=== PATIENT | male | born 1965 | race Caucasian/White ===

== ENCOUNTER 2019-04-16 06:41 | Emergency (ER) | payer OTHER ==
[2019-04-16 07:16] VITALS: BP 146/79; PULSE 81; TEMP 97.7; BMI 29.2
[2019-04-16] MEDS ORDERED: MECLIZINE HCL 25 MG TABLET (FP) PO ONE (07:35)
--- NOTE | 2019-04-16 07:45 | PDOC ---
History of Present Illness - General Chief Complaint: Headache Stated Complaint: DIZZINESS Time Seen by Provider: 04/16/19 07:28 History Source: Patient Exam Limitations: No Limitations - History of Present Illness Initial Comments: 04/16/19 07:26 53-year-old male with history of hypertension and diabetes presents to ED with complaints of dizziness worsened with standing and moving since last night. Patient denies any visual changes, headache, neck pain recent dental work recent travel recent head injury. Patient also denies chest pain or shortness of breath. Patient states has not checked his glucose but takes his medication a daily basis. Patient has no other complaints at this time. Timing/Duration: reports: constant Severity: Yes: mild Associated Symptoms: reports: other Past History - Travel Traveled outside of the country in the last 30 days: No Close contact w/someone who was outside of country & ill: No - Past Medical History Allergies/Adverse Reactions: Allergies Allergy/AdvReac Type Severity Reaction Status Date / Time No Known Allergies Allergy Verified 08/15/15 17:54 Home Medications: Ambulatory Orders Amlodipine Besylate [Norvasc -] 10 mg PO DAILY 05/11/14 Aspirin [ASA -] 81 mg PO DAILY 05/11/14 Lisinopril [Prinivil -] 40 mg PO DAILY 05/11/14 Sitagliptin Phosphate [Januvia] 100 mg PO DAILY 05/11/14 metFORMIN HCL [Glucophage] 1,000 mg PO BID 05/11/14 Atorvastatin Ca [Lipitor] 80 mg PO HS 04/16/19 Glipizide [Glipizide ER] 10 mg PO DAILY 04/16/19 Meclizine HCl [Antivert -] 25 mg PO TID PRN #21 tablet 04/16/19 COPD: No Diabetes: Yes HTN: Yes Hypercholesterolemia: Yes - Immunization History Immunization Up to Date: No - Suicide/Smoking/Psychosocial Hx Smoking History: Never smoked Hx Alcohol Use: No Drug/Substance Use Hx: No Substance Use Type: Alcohol Patient Lives Alone: No Lives with/in: spouse/SO Review of Systems - Review of Systems Able to Perform ROS?: Yes Constitutional: No: Symptoms Reported HEENTM: No: Symptoms Reported Respiratory: No: Symptoms reported Cardiac (ROS): No: Symptoms Reported ABD/GI: No: Symptoms Reported : No: Symptoms Reported Musculoskeletal: No: Symptoms Reported Integumentary: No: Symptoms Reported Neurological: Yes: Dizziness. No: Headache, Numbness, Weakness Endocrine: No: Symptoms Reported Hematologic/Lymphatic: No: Symptoms Reported *Physical Exam - Vital Signs Last Vital Signs Temp Pulse Resp BP Pulse Ox 97.7 F 81 18 146/79 98 04/16/19 07:09 04/16/19 07:09 04/16/19 07:09 04/16/19 07:09 04/16/19 07:09 - Physical Exam General Appearance: Yes: Nourished, Appropriately Dressed. No: Apparent Distress HEENT: negative: Pale Conjunctivae Neck: positive: Supple Respiratory/Chest: positive: Lungs Clear, Normal Breath Sounds. negative: Respiratory Distress, Accessory Muscle Use Cardiovascular: positive: Regular Rhythm, Regular Rate. negative: Tachycardia Gastrointestinal/Abdominal: positive: Soft. negative: Tenderness Integumentary: positive: Normal Color, Warm, Moist Neurologic: positive: Normal Mood/Affect, Motor Strength 5/5, Other (negative Hallpike's) Heart Score/ECG Review - ECG Intrepretation Rhythm: Regular Rhythm (rate 77, nsr, intervals are reg) - ECG Impressions Normal ECG: Yes Non-specific ST Elevation: No ED Treatment Course - LABORATORY CBC & Chemistry Diagram: 04/16/19 07:40 04/16/19 07:40 - RADIOLOGY Radiology Studies Ordered: Category Date Time Status HEAD CT WITHOUT CONTRAST [CT] Stat CT Scan 04/16/19 07:30 Ordered Medical Decision Making - Medical Decision Making 04/16/19 08:06 Chief complaint: Patient with history of diabetes and hypertension complaints of dizziness worsened with standing since last night. Patient states feels as if the room is spinning denies headache or visual changes Exam. Patient-vital signs stable. Patient with negative Hallpike's. No neuro focal deficits Plan. Labs, EKG, meclizine head CT and urine. 04/16/19 08:55 CT negative for focal intracranial lesion or hemorrhage. Mild deviation of the nasal septum towards the left noted. Patient states feeling moderate relief. will give an addit 12.5 mg and dc home with neuro f/u *DC/Admit/Observation/Transfer Diagnosis at time of Disposition: Vertigo - Discharge Dispostion Disposition: HOME Condition at time of disposition: Improved - Referrals Referrals: Howard Chiu MD [Primary Care Provider] - Keanu Reece MD [Staff Physician] - - Patient Instructions Printed Discharge Instructions: DI for Vertigo Additional Instructions: Please get up from lying position in steps as discussed here in the ER. Take medication as needed for dizziness. Please follow up with referred neurologist. If symptoms do not improve or worsen please go to the nearest ER. Print Language: LEBANESE - Post Discharge Activity
[2019-04-16] MEDS ORDERED: MECLIZINE HCL 25 MG TABLET (FP) ONE (08:05)
[2019-04-16 08:16] LABS: BASO % 0.7 % (0-2.0); EOS % 3.4 % (0-4.5); HEMATOCRIT 40.9 % (35.4-49); HEMOGLOBIN 13.6 GM/dL (11.7-16.9); MCH 28.2 pg (25.7-33.7); MCHC 33.3 g/dl (32.0-35.9); MEAN CELL VOLUME 84.7 fl (80-96); MEAN PLT VOLUME 7.7 fl (7.5-11.1); MONO % 9.1 % (3.8-10.2); NEUT % 61.8 % (42.8-82.8); PLATELET COUNT 199 K/MM3 (134-434); RBC 4.83 M/mm3 (4.00-5.60); RDW 13.8 % (11.9-15.9); WHITE BLOOD COUNT 5.9 K/mm3 (4.0-10.0)
[2019-04-16 08:30] LABS: ALBUMIN 3.9 g/dl (3.4-5.0); CALCIUM 8.6 mg/dL (8.5-10.1); CREATININE 0.9 mg/dL (0.55-1.3); POTASSIUM 4.6 mmol/L (3.5-5.1); TOT PROT 7.1 g/dl (6.4-8.2)
[2019-04-16 08:46] LABS: URINE APPEARANCE CLEAR; URINE BILIRUBIN NEGATIVE (NEGATIVE); URINE COLOR YELLOW; URINE GLUCOSE (UA) TRACE (NEGATIVE); URINE KETONE NEGATIVE (NEGATIVE); URINE LEUK ESTERASE NEGATIVE (NEGATIVE); URINE NITRITE NEGATIVE (NEGATIVE); URINE PROTEIN NEGATIVE (NEGATIVE)
[2019-04-16] MEDS ORDERED: MECLIZINE HCL 12.5 MG TABLET PO ONE (09:10)
[2019-04-16] MEDS ORDERED: MECLIZINE HCL 12.5 MG TABLET ONE (09:29)
--- NOTE | 2019-04-16 13:11 | EKG ---
Test Reason : Blood Pressure : / mmHG Vent. Rate : 077 BPM Atrial Rate : 077 BPM P-R Int : 182 ms QRS Dur : 092 ms QT Int : 378 ms P-R-T Axes : 057 068 026 degrees QTc Int : 427 ms NORMAL SINUS RHYTHM NORMAL ECG NO PREVIOUS ECGS AVAILABLE Confirmed by AMA LEON MD ([id number]) on 04/16/2019 1:11:16 PM Referred By: Confirmed By:AMA LEON MD
== END 2019-04-16 09:36 | disposition home or self-care (01) ==
LOC: JER 06:41
DX: R42 Dizziness and giddiness (principal); I10 Essential (primary) hypertension; E78.00 Pure hypercholesterolemia, unspecified; E11.9 Type 2 diabetes mellitus without complications; Z79.84 Long term (current) use of oral hypoglycemic drugs
CPT/HCPCS: 36415; 70450-TC; 80053; 81003; 85025; 93005; 93010; 99283-25

== ENCOUNTER 2021-01-03 19:04 | Emergency (ER) | payer OTHER ==
[2021-01-03 19:22] VITALS: TEMP 98.1; BMI 29.9
[2021-01-03] MEDS ORDERED: SODIUM CHLORIDE 1,000 ML IV STA ×2 (20:08→21:55)
[2021-01-03 20:55] LABS: BASO % 0.2 % (0-2.0); EOS % 1.7 % (0-4.5); HEMATOCRIT 42.5 % (35.4-49); HEMOGLOBIN 14.5 GM/dL (11.7-16.9); LYMPH % 20.2 % (8-40); MCH 28.1 pg (25.7-33.7); MCHC 34.2 g/dl (32.0-35.9); MEAN CELL VOLUME 82.3 fl (80-96); MEAN PLT VOLUME 8.1 fl (7.5-11.1); NEUT % 69.9 % (42.8-82.8); PLATELET COUNT 419 K/MM3 (134-434); RBC 5.17 M/mm3 (4.00-5.60); RDW 13.7 % (11.9-15.9); WHITE BLOOD COUNT 8.7 K/mm3 (4.0-10.0)
[2021-01-03 21:11] LABS: CHLORIDE 95 mmol/L (98-107); POTASSIUM 4.2 mmol/L (3.5-5.1); SODIUM 131 mmol/L (136-145)
[2021-01-03 21:14] LABS: ANION GAP 8 MMOL/L (8-16); BLOOD UREA NITROGEN 27.8 mg/dL (7-18); CALCIUM 9.3 mg/dL (8.5-10.1); CO2 29 mmol/L (21-32)
[2021-01-03 21:15] LABS: ALBUMIN 3.5 g/dl (3.4-5.0)
[2021-01-03 21:17] LABS: SGOT/AST 37 U/L (15-37); SGPT/ALT 100 U/L (13-61)
[2021-01-03 21:18] LABS: CREATININE 1.4 mg/dL (0.55-1.3)
[2021-01-03 21:19] LABS: BILIRUBIN,TOTAL 0.7 mg/dL (0.2-1); TOT PROT 7.2 g/dl (6.4-8.2)
[2021-01-03 21:20] LABS: ALK PHOS 99 U/L (45-117)
[2021-01-03 21:23] LABS: VENOUS BASE EXCESS -0.3 mmol/L (-2-2); VENOUS O2 SATURATION 68.1 % (70-80); VENOUS PCO2 44.2 mmHg (38-52); VENOUS PH 7.375 (7.310-7.410)
[2021-01-03 21:31] LABS: GLUCOSE,RANDOM 440 mg/dL (74-106)
[2021-01-03] MEDS ORDERED: INSULIN REGULAR HUMAN 100 UNITS/ML *VIAL IVPUSH ONE (21:55)
[2021-01-03 22:01] LABS: URINE COLOR YELLOW
[2021-01-03 22:02] LABS: PH,URINE 6.5 (5.0-8.0); URINE APPEARANCE CLEAR; URINE BILIRUBIN NEGATIVE (NEGATIVE); URINE GLUCOSE (UA) >=1000 (NEGATIVE); URINE KETONE TRACE (NEGATIVE); URINE LEUK ESTERASE NEGATIVE (NEGATIVE); URINE NITRITE NEGATIVE (NEGATIVE); URINE PROTEIN NEGATIVE (NEGATIVE)
[2021-01-04 00:19] VITALS: BP 130/77; PULSE 89
== END 2021-01-04 00:19 | disposition home or self-care (01) ==
LOC: JER 19:04
PROC: 3E013VG Introduction of Insulin into Subcutaneous Tissue, Percutaneous Approach (ICD-10-PCS; principal; 2021-01-03)
PROC: 3E0337Z Introduction of Electrolytic and Water Balance Substance into Peripheral Vein, Percutaneous Approach (ICD-10-PCS; 2021-01-03)
PROC: 3E0337Z Introduction of Electrolytic and Water Balance Substance into Peripheral Vein, Percutaneous Approach (ICD-10-PCS; 2021-01-03)
DX: R73.9 Hyperglycemia, unspecified (principal)
CPT/HCPCS: 36415; 71046-TC-FY; 80053; 81003; 82010; 82550; 82803; 82962; 84484; 85025; 93005; 93010; 99285-25

== ENCOUNTER 2021-04-26 15:18 | Emergency (ER) | payer OTHER ==
[2021-04-26 15:35] VITALS: BP 124/77; PULSE 79; TEMP 98.1; BMI 29.9
== END 2021-04-26 17:05 | disposition home or self-care (01) ==
LOC: JERFT 15:18
DX: M25.512 Pain in left shoulder (principal)
CPT/HCPCS: 73030-TC-LT-FY; 99283-25

== ENCOUNTER 2022-03-06 12:14 | Emergency (ER) | payer OTHER ==
[2022-03-06 12:26] VITALS: BP 167/79; PULSE 87; TEMP 97.7; BMI 29.2
[2022-03-06] MEDS ORDERED: CEFAZOLIN 1 GM in DEXTROSE 5%-WATER - 50 ML IVPB ONE (15:45)
[2022-03-06] MEDS ORDERED: ceFAZolin SODIUM 1 GM VIAL ONE (16:10)
[2022-03-06 16:42] LABS: BASO % 0.8 % (0-2.0); EOS % 4.2 % (0-4.5); HEMATOCRIT 39.7 % (35.4-49); HEMOGLOBIN 13.4 GM/dL (11.7-16.9); LYMPH % 22.1 % (8-40); MCH 28.2 pg (25.7-33.7); MCHC 33.7 g/dl (32.0-35.9); MEAN CELL VOLUME 83.6 fl (80-96); MEAN PLT VOLUME 7.6 fl (7.5-11.1); MONO % 6.8 % (3.8-10.2); NEUT % 66.1 % (42.8-82.8); PLATELET COUNT 204 10^3/uL (134-434); RBC 4.75 M/mm3 (4.00-5.60); RDW 14.2 % (11.9-15.9)
[2022-03-06 17:02] LABS: ALBUMIN 3.7 g/dl (3.4-5.0); BLOOD UREA NITROGEN 16.5 mg/dL (7-18); CALCIUM 8.6 mg/dL (8.5-10.1)
[2022-03-06 17:08] LABS: BILIRUBIN,TOTAL 0.9 mg/dL (0.2-1); TOT PROT 7.4 g/dl (6.4-8.2)
== END 2022-03-06 17:43 | disposition home or self-care (01) ==
LOC: JER 12:14
PROC: 3E033GC Introduction of Other Therapeutic Substance into Peripheral Vein, Percutaneous Approach (ICD-10-PCS; principal; 2022-03-06)
DX: S91.101A Unspecified open wound of right great toe without damage to nail, initial encounter (principal); S91.102A Unspecified open wound of left great toe without damage to nail, initial encounter; B35.1 Tinea unguium; L84 Corns and callosities; Y99.9 Unspecified external cause status
CPT/HCPCS: 36415; 80053; 85025; 87070; 87186; 87205; 99284-25

== ENCOUNTER 2022-03-23 22:44 | Emergency (ER) | payer OTHER ==
[2022-03-23 23:12] VITALS: BP 159/65; PULSE 93; TEMP 98.1; BMI 29.2
[2022-03-23] MEDS ORDERED: SODIUM CHLORIDE 0.9% 500 ML INFUS.BAG IV ONE (23:37)
[2022-03-23] MEDS ORDERED: KETOROLAC TROMETHAMINE 30 MG/1 ML VIAL IVPUSH ONE (23:37)
[2022-03-23] MEDS ORDERED: KETOROLAC TROMETHAMINE 30 MG/1 ML VIAL ONE (23:49)
[2022-03-23 23:58] LABS: BASO % 0.8 % (0-2.0); EOS % 5.6 % (0-4.5); HEMATOCRIT 38.5 % (35.4-49); HEMOGLOBIN 13.1 GM/dL (11.7-16.9); LYMPH % 26.3 % (8-40); MCH 28.4 pg (25.7-33.7); MEAN CELL VOLUME 83.5 fl (80-96); MEAN PLT VOLUME 7.6 fl (7.5-11.1); MONO % 7.3 % (3.8-10.2); PLATELET COUNT 214 10^3/uL (134-434); RBC 4.61 M/mm3 (4.00-5.60); RDW 14.2 % (11.9-15.9); WHITE BLOOD COUNT 6.8 K/mm3 (4.0-10.0)
[2022-03-24 00:03] LABS: URINE APPEARANCE CLEAR; URINE BILIRUBIN NEGATIVE (NEGATIVE); URINE COLOR YELLOW; URINE GLUCOSE (UA) 3+ (NEGATIVE); URINE KETONE TRACE (NEGATIVE); URINE LEUK ESTERASE NEGATIVE (NEGATIVE); URINE NITRITE NEGATIVE (NEGATIVE); URINE PROTEIN NEGATIVE (NEGATIVE)
[2022-03-24 00:19] LABS: CALCIUM 9.2 mg/dL (8.5-10.1)
[2022-03-24 00:20] LABS: ALBUMIN 3.8 g/dl (3.4-5.0); BLOOD UREA NITROGEN 20.6 mg/dL (7-18)
[2022-03-24 00:23] LABS: CREATININE 1.2 mg/dL (0.55-1.3)
[2022-03-24 00:24] LABS: BILIRUBIN,TOTAL 0.6 mg/dL (0.2-1); TOT PROT 7.3 g/dl (6.4-8.2)
== END 2022-03-24 03:40 | disposition home or self-care (01) ==
LOC: JER 22:44
PROC: 3E033GC Introduction of Other Therapeutic Substance into Peripheral Vein, Percutaneous Approach (ICD-10-PCS; principal; 2022-03-23)
DX: R10.9 Unspecified abdominal pain (principal); E11.65 Type 2 diabetes mellitus with hyperglycemia
CPT/HCPCS: 36415; 74176-TC; 80053; 81003; 82962; 83605; 83690; 85025; 87086; 99285-25

== ENCOUNTER 2022-11-05 15:01 | Emergency (ER) | payer OTHER ==
[2022-11-05 15:26] VITALS: BP 164/97; PULSE 87; RESP 18; TEMP 97.9; BMI 29.2
[2022-11-05] MEDS ORDERED: MECLIZINE HCL 25 MG TABLET (FP) PO ONE (16:44)
[2022-11-05] MEDS ORDERED: MECLIZINE HCL 25 MG TABLET (FP) ONE (17:40)
[2022-11-05 18:10] LABS: BASO % 0.4 % (0-2.0); EOS % 0.5 % (0-4.5); HEMATOCRIT 40.2 % (35.4-49); HEMOGLOBIN 13.3 GM/dL (11.7-16.9); MCH 28.5 pg (25.7-33.7); MCHC 33.2 g/dl (32.0-35.9); MEAN CELL VOLUME 85.9 fl (80-96); MEAN PLT VOLUME 7.8 fl (7.5-11.1); MONO % 4.8 % (3.8-10.2); NEUT % 79.3 % (42.8-82.8); PLATELET COUNT 246 10^3/uL (134-434); RBC 4.68 M/mm3 (4.00-5.60); RDW 13.7 % (11.9-15.9); WHITE BLOOD COUNT 9.2 K/mm3 (4.0-10.0)
[2022-11-05 18:19] LABS: BLOOD UREA NITROGEN 18.2 mg/dL (7-18); CALCIUM 9.7 mg/dL (8.5-10.1); MAGNESIUM 1.7 mg/dL (1.8-2.4)
[2022-11-05 18:22] LABS: CREATININE 0.9 mg/dL (0.55-1.3)
[2022-11-05 18:24] LABS: BILIRUBIN,TOTAL 0.7 mg/dL (0.2-1); TOT PROT 7.4 g/dl (6.4-8.2)
== END 2022-11-05 23:30 | disposition left against medical advice (07) ==
LOC: JER 15:01
DX: R42 Dizziness and giddiness (principal)
CPT/HCPCS: 0241U-QW; 36415; 70450-TC; 71045-TC-FY; 80053; 83735; 84484; 85025; 93005; 93010; 99285-25

== ENCOUNTER 2022-11-06 12:40 | Observation (INO) | payer OTHER ==
[2022-11-06 13:10] VITALS: BMI 41.8
[2022-11-06] MEDS ORDERED: MECLIZINE HCL 12.5 MG TABLET PO ONE (15:08)
[2022-11-06] MEDS ORDERED: MECLIZINE HCL 12.5 MG TABLET ONE (15:16)
[2022-11-06] MEDS ORDERED: ENOXAPARIN NA (PORCINE) 40 MG/0.4 ML DISP.SYRIN SQ ONE (21:48)
[2022-11-06] MEDS: ENOXAPARIN NA (PORCINE) 40 MG/0.4 ML DISP.SYRIN SQ SCH (21:55)
[2022-11-06] MEDS: INSULIN SLIDING SCALE (NOVOLOG) 1 VIAL SQ SCH (21:55)
[2022-11-06] MEDS ORDERED: MECLIZINE HCL 25 MG TABLET (FP) PO PRN (23:03)
[2022-11-07 08:07] LABS: BASO % 0.8 % (0-2.0); EOS % 4.4 % (0-4.5); HEMATOCRIT 40.6 % (35.4-49); HEMOGLOBIN 13.6 GM/dL (11.7-16.9); MCH 28.6 pg (25.7-33.7); MCHC 33.5 g/dl (32.0-35.9); MEAN CELL VOLUME 85.3 fl (80-96); MONO % 7.5 % (3.8-10.2); NEUT % 61.3 % (42.8-82.8); PLATELET COUNT 233 10^3/uL (134-434); RBC 4.76 M/mm3 (4.00-5.60); RDW 13.8 % (11.9-15.9); WHITE BLOOD COUNT 6.5 K/mm3 (4.0-10.0)
[2022-11-07 08:19] LABS: ALBUMIN 3.7 g/dl (3.4-5.0)
[2022-11-07 08:20] LABS: MAGNESIUM 1.7 mg/dL (1.8-2.4)
[2022-11-07 08:22] LABS: PHOSPHOROUS 3.6 mg/dL (2.5-4.9)
[2022-11-07 08:24] LABS: TOT PROT 6.9 g/dl (6.4-8.2)
[2022-11-07] MEDS: INSULIN SLIDING SCALE (NOVOLOG) 1 VIAL SQ SCH ×3 (09:50→16:27)
[2022-11-07] MEDS ORDERED: amLODIPine BESYLATE 10 MG TABLET (FP) ONE (09:53)
[2022-11-07] MEDS ORDERED: LISINOPRIL 20 MG TABLET ONE (09:53)
[2022-11-07] MEDS ORDERED: ENOXAPARIN NA (PORCINE) 40 MG/0.4 ML DISP.SYRIN SQ ONE (09:53)
[2022-11-07] MEDS ORDERED: amLODIPine BESYLATE 10 MG TABLET (FP) PO SCH (10:00)
[2022-11-07] MEDS ORDERED: ASPIRIN 81 MG CHEWABLE TABLETS PO SCH (10:00)
[2022-11-07] MEDS ORDERED: LISINOPRIL 20 MG TABLET PO SCH (10:00)
[2022-11-07] MEDS: ENOXAPARIN NA (PORCINE) 40 MG/0.4 ML DISP.SYRIN SQ SCH (10:11)
[2022-11-07 11:55] VITALS: RESP 15
[2022-11-07 17:04] VITALS: BP 145/86; PULSE 77; TEMP 97.4
[2022-11-07] MEDS ORDERED: ATORVASTATIN CA 20 MG TABLET (FP) PO SCH (22:00)
== END 2022-11-07 17:06 | disposition home or self-care (01) ==
LOC: JER 12:40 → JERBED 21:08
PROVIDERS: ADMIT Internal Medicine; ATTEND Internal Medicine
PROC: 3E023GC Introduction of Other Therapeutic Substance into Muscle, Percutaneous Approach (ICD-10-PCS; principal; 2022-11-06)
PROC: 3E013VG Introduction of Insulin into Subcutaneous Tissue, Percutaneous Approach (ICD-10-PCS; 2022-11-06)
DX: I10 Essential (primary) hypertension (principal); E11.9 Type 2 diabetes mellitus without complications; R42 Dizziness and giddiness; E78.5 Hyperlipidemia, unspecified; E66.01 Morbid (severe) obesity due to excess calories; Z68.41 Body mass index [BMI] 40.0-44.9, adult
CPT/HCPCS: 36415; 70551-TC; 80053; 82962; 83735; 84100; 85025; 93005; 93010; 96372; 99285-25; C9803-CS; G0378; U0003; U0005

== ENCOUNTER 2023-01-17 15:50 | Emergency (ER) | payer OTHER ==
[2023-01-17 16:02] VITALS: BP 129/72; PULSE 85; RESP 18; TEMP 98; BMI 29.3
== END 2023-01-17 22:32 | disposition home or self-care (01) ==
LOC: JER 15:50
DX: L97.921 Non-pressure chronic ulcer of unspecified part of left lower leg limited to breakdown of skin (principal)
CPT/HCPCS: 73590-TC-LT-FY; 99283-25

== ENCOUNTER 2023-03-27 20:53 | Inpatient (IN) | payer OTHER ==
[2023-03-27] MEDS ORDERED: KETOROLAC TROMETHAMINE 30 MG/1 ML VIAL IVPUSH ONE (23:15)
[2023-03-27] MEDS ORDERED: PIPERACILLIN/TAZOB 4.5 GM 4.5 GM in DEXTROSE 5%-WATER 100 ML IVPB ONE (23:42)
[2023-03-27 23:46] LABS: BASO % 0.5 % (0-2.0); HEMATOCRIT 36.5 % (35.4-49); HEMOGLOBIN 12.3 GM/dL (11.7-16.9); LYMPH % 8.3 % (8-40); MCH 27.9 pg (25.7-33.7); MCHC 33.6 g/dl (32.0-35.9); MEAN PLT VOLUME 7.8 fl (7.5-11.1); MONO % 7.1 % (3.8-10.2); NEUT % 84.1 % (42.8-82.8); PLATELET COUNT 208 10^3/uL (134-434); RDW 15.1 % (11.9-15.9)
[2023-03-27] MEDS ORDERED: SODIUM CHLORIDE 0.9% 500 ML INFUS.BAG IV ONE (23:59)
[2023-03-28] MEDS ORDERED: KETOROLAC TROMETHAMINE 30 MG/1 ML VIAL ONE (00:01)
[2023-03-28 00:09] LABS: POTASSIUM 4.2 mmol/L (3.5-5.1)
[2023-03-28 00:11] LABS: CALCIUM 8.8 mg/dL (8.5-10.1)
[2023-03-28 00:12] LABS: ALBUMIN 3.4 g/dl (3.4-5.0); BLOOD UREA NITROGEN 22.1 mg/dL (7-18)
[2023-03-28] MEDS ORDERED: PIPERACILLIN/TAZOB 4.5 GM 4.5 GM/100 ML BAG IVPB ONE (00:13)
[2023-03-28 00:15] LABS: CREATININE 1.9 mg/dL (0.55-1.3)
[2023-03-28 00:16] LABS: TOT PROT 7.4 g/dl (6.4-8.2)
[2023-03-28 03:51] LABS: EPI CELLS 1 /uL (0-25.1); HYALINE CASTS 0 /uL (0-3.1); PH,URINE 6.5 (5.0-8.0); URINE APPEARANCE CLEAR; URINE BACTERIA 0 /uL (0-1359); URINE BILIRUBIN NEGATIVE (NEGATIVE); URINE COLOR YELLOW; URINE GLUCOSE (UA) 3+ (NEGATIVE); URINE KETONE NEGATIVE (NEGATIVE); URINE LEUK ESTERASE NEGATIVE (NEGATIVE); URINE NITRITE NEGATIVE (NEGATIVE); URINE PROTEIN 2+ (NEGATIVE); URINE WBC 4 /uL (0-25.8)
[2023-03-28 05:08] VITALS: BMI 28.7
[2023-03-28 06:12] LABS: ERYTHROCYTE SEDIMENTATION RATE 67 mm/hr (0-20)
[2023-03-28] MEDS: INSULIN (NOVOLOG) ASPART 100 UNITS/ML 10ML VIAL SQ SCH ×3 (06:41→16:27)
[2023-03-28] MEDS: HEPARIN NA (PORCINE) 5,000 UNITS/ML 1ML VIAL SQ SCH ×3 (06:41→21:39)
[2023-03-28] MEDS: SODIUM CHLORIDE 1,000 ML IV SCH ×2 (06:44→16:40)
[2023-03-28 07:43] LABS: MCH 28.6 pg (25.7-33.7); MCHC 34.5 g/dl (32.0-35.9); MEAN CELL VOLUME 82.9 fl (80-96); MEAN PLT VOLUME 8.2 fl (7.5-11.1); PLATELET COUNT 164 10^3/uL (134-434); RBC 3.87 M/mm3 (4.00-5.60); RDW 15.1 % (11.9-15.9); WHITE BLOOD COUNT 14.6 K/mm3 (4.0-10.0)
[2023-03-28 08:08] LABS: CALCIUM 8.5 mg/dL (8.5-10.1)
[2023-03-28 08:09] LABS: BLOOD UREA NITROGEN 27.6 mg/dL (7-18)
[2023-03-28 08:12] LABS: CREATININE 1.8 mg/dL (0.55-1.3); URIC ACID 4.1 mg/dL (2.6-7.2)
[2023-03-28 08:14] LABS: TOT PROT 6.6 g/dl (6.4-8.2)
[2023-03-28 08:44] LABS: URINE RBC 25 /uL (0-23.9); YEAST NONR (NEGATIVE)
[2023-03-28] MEDS: amLODIPine BESYLATE 10 MG TABLET (FP) PO SCH (09:49)
[2023-03-28] MEDS ORDERED: CEFTRIAXONE 1 GM in DEXTROSE 5%-WATER - 50 ML IVPB SCH (10:00)
[2023-03-28] MEDS ORDERED: amLODIPine BESYLATE 10 MG TABLET (FP) PO SCH (10:00)
[2023-03-28] MEDS ORDERED: INSULIN (NOVOLOG) ASPART 100 UNITS/ML 10ML VIAL ONE (11:08)
[2023-03-28] MEDS: PIPERACILLIN/TAZOB 3.375 GM 3.375 GM in DEXTROSE 5%-WATER - 50 ML IVPB SCH (17:12)
[2023-03-28] MEDS: ACETAMINOPHEN 325 MG TABLET (FP) PO PRN (19:02)
[2023-03-28] MEDS ORDERED: oxyCODONE HCL 5 MG TABLET PO ONE (21:17)
[2023-03-28] MEDS: ATORVASTATIN CA 20 MG TABLET (FP) PO SCH (21:40)
[2023-03-29] MEDS: PIPERACILLIN/TAZOB 3.375 GM 3.375 GM in DEXTROSE 5%-WATER - 50 ML IVPB SCH ×3 (02:59→17:07)
[2023-03-29] MEDS: ACETAMINOPHEN 325 MG TABLET (FP) PO PRN ×3 (06:13→21:38)
[2023-03-29] MEDS: HEPARIN NA (PORCINE) 5,000 UNITS/ML 1ML VIAL SQ SCH ×3 (06:14→21:34)
[2023-03-29] MEDS: SODIUM CHLORIDE 1,000 ML IV SCH (06:18)
[2023-03-29] MEDS: INSULIN (NOVOLOG) ASPART 100 UNITS/ML 10ML VIAL SQ SCH ×3 (06:18→17:07)
[2023-03-29 08:37] LABS: POTASSIUM 4.1 mmol/L (3.5-5.1)
[2023-03-29 08:42] LABS: ALBUMIN 2.6 g/dl (3.4-5.0); BLOOD UREA NITROGEN 16.9 mg/dL (7-18); CALCIUM 8.1 mg/dL (8.5-10.1)
[2023-03-29 08:44] LABS: MAGNESIUM 1.9 mg/dL (1.8-2.4)
[2023-03-29 08:45] LABS: BASO % 0.2 % (0-2.0); CREATININE 1.1 mg/dL (0.55-1.3); EOS % 0.4 % (0-4.5); HEMATOCRIT 29.9 % (35.4-49); HEMOGLOBIN 10.4 GM/dL (11.7-16.9); LYMPH % 11.4 % (8-40); MCH 28.9 pg (25.7-33.7); MCHC 34.9 g/dl (32.0-35.9); MEAN CELL VOLUME 82.9 fl (80-96); MEAN PLT VOLUME 8.5 fl (7.5-11.1); MONO % 6.8 % (3.8-10.2); NEUT % 81.2 % (42.8-82.8); PLATELET COUNT 161 10^3/uL (134-434); RBC 3.61 M/mm3 (4.00-5.60); RDW 15.1 % (11.9-15.9); WHITE BLOOD COUNT 11.8 K/mm3 (4.0-10.0)
[2023-03-29 08:47] LABS: BILIRUBIN,TOTAL 1.3 mg/dL (0.2-1); TOT PROT 6.2 g/dl (6.4-8.2)
[2023-03-29] MEDS: amLODIPine BESYLATE 10 MG TABLET (FP) PO SCH (10:23)
[2023-03-29] MEDS: ATORVASTATIN CA 20 MG TABLET (FP) PO SCH (21:34)
[2023-03-30] MEDS: PIPERACILLIN/TAZOB 3.375 GM 3.375 GM in DEXTROSE 5%-WATER - 50 ML IVPB SCH ×3 (01:41→17:10)
[2023-03-30] MEDS: HEPARIN NA (PORCINE) 5,000 UNITS/ML 1ML VIAL SQ SCH ×3 (05:32→21:36)
[2023-03-30] MEDS: INSULIN (NOVOLOG) ASPART 100 UNITS/ML 10ML VIAL SQ SCH ×3 (06:06→17:36)
[2023-03-30 09:01] LABS: BASO % 0.4 % (0-2.0); EOS % 0.8 % (0-4.5); HEMATOCRIT 30.4 % (35.4-49); HEMOGLOBIN 10.7 GM/dL (11.7-16.9); LYMPH % 13.1 % (8-40); MCH 29.3 pg (25.7-33.7); MCHC 35.1 g/dl (32.0-35.9); MEAN CELL VOLUME 83.4 fl (80-96); MEAN PLT VOLUME 8.3 fl (7.5-11.1); MONO % 7.9 % (3.8-10.2); NEUT % 77.8 % (42.8-82.8); PLATELET COUNT 203 10^3/uL (134-434); RBC 3.65 M/mm3 (4.00-5.60); RDW 15.3 % (11.9-15.9); WHITE BLOOD COUNT 8.9 K/mm3 (4.0-10.0)
[2023-03-30 09:12] LABS: POTASSIUM 4.1 mmol/L (3.5-5.1)
[2023-03-30 09:15] LABS: CALCIUM 8.6 mg/dL (8.5-10.1)
[2023-03-30 09:16] LABS: ALBUMIN 2.6 g/dl (3.4-5.0); BLOOD UREA NITROGEN 12.4 mg/dL (7-18); MAGNESIUM 1.7 mg/dL (1.8-2.4)
[2023-03-30 09:21] LABS: BILIRUBIN,TOTAL 1.2 mg/dL (0.2-1); TOT PROT 6.6 g/dl (6.4-8.2)
[2023-03-30] MEDS: amLODIPine BESYLATE 10 MG TABLET (FP) PO SCH (10:33)
[2023-03-30] MEDS: MAGNESIUM OXIDE 400 MG TABLET (FP) PO SCH ×2 (11:20→21:36)
[2023-03-30] MEDS: ATORVASTATIN CA 20 MG TABLET (FP) PO SCH (21:36)
[2023-03-30] MEDS: ACETAMINOPHEN 325 MG TABLET (FP) PO PRN (21:40)
[2023-03-31] MEDS: PIPERACILLIN/TAZOB 3.375 GM 3.375 GM in DEXTROSE 5%-WATER - 50 ML IVPB SCH ×3 (02:52→17:14)
[2023-03-31] MEDS: HEPARIN NA (PORCINE) 5,000 UNITS/ML 1ML VIAL SQ SCH ×4 (05:59→22:16)
[2023-03-31] MEDS: ACETAMINOPHEN 325 MG TABLET (FP) PO PRN ×2 (06:00→20:21)
[2023-03-31] MEDS: INSULIN (NOVOLOG) ASPART 100 UNITS/ML 10ML VIAL SQ SCH ×3 (06:19→17:14)
[2023-03-31] MEDS ORDERED: INSULIN (NOVOLOG) ASPART 100 UNITS/ML 10ML VIAL ONE (06:48)
[2023-03-31 08:42] LABS: BASO % 0.5 % (0-2.0); EOS % 1.8 % (0-4.5); HEMATOCRIT 29.8 % (35.4-49); HEMOGLOBIN 10.4 GM/dL (11.7-16.9); LYMPH % 13.4 % (8-40); MCH 28.8 pg (25.7-33.7); MEAN CELL VOLUME 82.4 fl (80-96); MONO % 7.4 % (3.8-10.2); NEUT % 76.9 % (42.8-82.8); PLATELET COUNT 247 10^3/uL (134-434); RBC 3.61 M/mm3 (4.00-5.60); RDW 15.2 % (11.9-15.9); WHITE BLOOD COUNT 9.1 K/mm3 (4.0-10.0)
[2023-03-31 09:04] LABS: POTASSIUM 4.5 mmol/L (3.5-5.1)
[2023-03-31 09:10] LABS: CALCIUM 9.1 mg/dL (8.5-10.1)
[2023-03-31 09:11] LABS: ALBUMIN 2.6 g/dl (3.4-5.0); BLOOD UREA NITROGEN 14.8 mg/dL (7-18); MAGNESIUM 1.8 mg/dL (1.8-2.4)
[2023-03-31 09:14] LABS: CREATININE 1.1 mg/dL (0.55-1.3)
[2023-03-31 09:16] LABS: BILIRUBIN,TOTAL 1.2 mg/dL (0.2-1); TOT PROT 6.7 g/dl (6.4-8.2)
[2023-03-31] MEDS: amLODIPine BESYLATE 10 MG TABLET (FP) PO SCH (09:36)
[2023-03-31] MEDS: ATORVASTATIN CA 20 MG TABLET (FP) PO SCH (22:10)
[2023-04-01] MEDS: PIPERACILLIN/TAZOB 3.375 GM 3.375 GM in DEXTROSE 5%-WATER - 50 ML IVPB SCH ×3 (03:01→17:03)
[2023-04-01] MEDS: ACETAMINOPHEN 325 MG TABLET (FP) PO PRN (04:15)
[2023-04-01] MEDS: HEPARIN NA (PORCINE) 5,000 UNITS/ML 1ML VIAL SQ SCH ×3 (07:23→21:10)
[2023-04-01] MEDS: INSULIN (NOVOLOG) ASPART 100 UNITS/ML 10ML VIAL SQ SCH ×4 (07:57→21:11)
[2023-04-01] MEDS ORDERED: ACETAMINOPHEN 325 MG TABLET (FP) PO PRN (09:18)
[2023-04-01] MEDS: amLODIPine BESYLATE 10 MG TABLET (FP) PO SCH (09:25)
[2023-04-01] MEDS: ASPIRIN 81 MG CHEWABLE TABLETS PO SCH (09:46)
[2023-04-01] MEDS: oxyCODONE HCL 5 MG TABLET PO PRN ×3 (09:47→20:25)
[2023-04-01] MEDS: valACYclovir HCL 500 MG TABLET (FP) PO SCH (16:59)
[2023-04-01] MEDS: ATORVASTATIN CA 20 MG TABLET (FP) PO SCH (21:11)
[2023-04-01] MEDS ORDERED: INSULIN (LEVEMIR) 100 UNITS/ML UNITS SQ SCH (22:00)
[2023-04-02] MEDS: valACYclovir HCL 500 MG TABLET (FP) PO SCH ×3 (01:01→21:04)
[2023-04-02] MEDS: PIPERACILLIN/TAZOB 3.375 GM 3.375 GM in DEXTROSE 5%-WATER - 50 ML IVPB SCH ×3 (01:01→17:16)
[2023-04-02] MEDS: HEPARIN NA (PORCINE) 5,000 UNITS/ML 1ML VIAL SQ SCH ×3 (06:10→21:03)
[2023-04-02] MEDS: INSULIN (NOVOLOG) ASPART 100 UNITS/ML 10ML VIAL SQ SCH ×4 (06:11→21:04)
[2023-04-02 08:19] LABS: BASO % 0.8 % (0-2.0); EOS % 4.5 % (0-4.5); HEMOGLOBIN 10.8 GM/dL (11.7-16.9); LYMPH % 14.4 % (8-40); MCH 28.7 pg (25.7-33.7); MCHC 34.7 g/dl (32.0-35.9); MEAN CELL VOLUME 82.8 fl (80-96); MEAN PLT VOLUME 7.5 fl (7.5-11.1); NEUT % 70.3 % (42.8-82.8); PLATELET COUNT 352 10^3/uL (134-434); RBC 3.75 M/mm3 (4.00-5.60); RDW 14.9 % (11.9-15.9); WHITE BLOOD COUNT 8.6 K/mm3 (4.0-10.0)
[2023-04-02 08:48] LABS: ALBUMIN 2.7 g/dl (3.4-5.0); CALCIUM 9.1 mg/dL (8.5-10.1); MAGNESIUM 1.9 mg/dL (1.8-2.4)
[2023-04-02 08:50] LABS: TOT PROT 7.3 g/dl (6.4-8.2)
[2023-04-02] MEDS: ASPIRIN 81 MG CHEWABLE TABLETS PO SCH (09:19)
[2023-04-02] MEDS: amLODIPine BESYLATE 10 MG TABLET (FP) PO SCH (09:19)
[2023-04-02] MEDS: ACETAMINOPHEN 325 MG TABLET (FP) PO SCH ×4 (13:01→23:46)
[2023-04-02] MEDS: DOCUSATE SODIUM 100 MG CAPSULE (FP) PO SCH ×2 (13:05→21:03)
[2023-04-02] MEDS: INSULIN (LEVEMIR) 100 UNITS/ML UNITS SQ SCH (21:03)
[2023-04-02] MEDS: ATORVASTATIN CA 20 MG TABLET (FP) PO SCH (21:04)
[2023-04-03] MEDS: PIPERACILLIN/TAZOB 3.375 GM 3.375 GM in DEXTROSE 5%-WATER - 50 ML IVPB SCH ×3 (01:01→17:56)
[2023-04-03] MEDS: ACETAMINOPHEN 325 MG TABLET (FP) PO SCH ×6 (03:05→23:34)
[2023-04-03] MEDS: HEPARIN NA (PORCINE) 5,000 UNITS/ML 1ML VIAL SQ SCH ×3 (06:34→21:13)
[2023-04-03] MEDS: DOCUSATE SODIUM 100 MG CAPSULE (FP) PO SCH ×3 (06:34→21:13)
[2023-04-03] MEDS: INSULIN (NOVOLOG) ASPART 100 UNITS/ML 10ML VIAL SQ SCH ×4 (06:35→21:14)
[2023-04-03 09:54] LABS: POTASSIUM 4.5 mmol/L (3.5-5.1)
[2023-04-03 10:02] LABS: EOS % 3.5 % (0-4.5); HEMOGLOBIN 11.6 GM/dL (11.7-16.9); LYMPH % 13.9 % (8-40); MCH 29.2 pg (25.7-33.7); MCHC 35.2 g/dl (32.0-35.9); MEAN CELL VOLUME 82.8 fl (80-96); MEAN PLT VOLUME 7.5 fl (7.5-11.1); MONO % 6.8 % (3.8-10.2); NEUT % 74.8 % (42.8-82.8); PLATELET COUNT 453 10^3/uL (134-434); RBC 3.98 M/mm3 (4.00-5.60); RDW 15.4 % (11.9-15.9); WHITE BLOOD COUNT 10.7 K/mm3 (4.0-10.0)
[2023-04-03 10:06] LABS: ALBUMIN 2.9 g/dl (3.4-5.0); BLOOD UREA NITROGEN 16.3 mg/dL (7-18); CALCIUM 9.4 mg/dL (8.5-10.1); MAGNESIUM 1.8 mg/dL (1.8-2.4)
[2023-04-03 10:11] LABS: BILIRUBIN,TOTAL 0.8 mg/dL (0.2-1)
[2023-04-03] MEDS: valACYclovir HCL 500 MG TABLET (FP) PO SCH ×2 (12:22→21:13)
[2023-04-03] MEDS: ASPIRIN 81 MG CHEWABLE TABLETS PO SCH (12:23)
[2023-04-03] MEDS: amLODIPine BESYLATE 10 MG TABLET (FP) PO SCH (12:23)
[2023-04-03] MEDS ORDERED: INSULIN (NOVOLOG) ASPART 100 UNITS/ML 10ML VIAL ONE (12:40)
[2023-04-03] MEDS: ATORVASTATIN CA 20 MG TABLET (FP) PO SCH (21:13)
[2023-04-03] MEDS: INSULIN (LEVEMIR) 100 UNITS/ML UNITS SQ SCH (21:14)
[2023-04-03 22:32] VITALS: RESP 18
[2023-04-04] MEDS: PIPERACILLIN/TAZOB 3.375 GM 3.375 GM in DEXTROSE 5%-WATER - 50 ML IVPB SCH ×2 (01:03→10:23)
[2023-04-04] MEDS: ACETAMINOPHEN 325 MG TABLET (FP) PO SCH ×3 (02:52→12:30)
[2023-04-04] MEDS: DOCUSATE SODIUM 100 MG CAPSULE (FP) PO SCH ×2 (05:07→13:18)
[2023-04-04] MEDS: HEPARIN NA (PORCINE) 5,000 UNITS/ML 1ML VIAL SQ SCH ×2 (05:07→13:18)
[2023-04-04] MEDS: oxyCODONE HCL 5 MG TABLET PO PRN (05:07)
[2023-04-04] MEDS: INSULIN (NOVOLOG) ASPART 100 UNITS/ML 10ML VIAL SQ SCH ×2 (06:12→12:31)
[2023-04-04 09:25] LABS: EOS % 4.3 % (0-4.5); HEMATOCRIT 31.4 % (35.4-49); HEMOGLOBIN 10.7 GM/dL (11.7-16.9); LYMPH % 16.7 % (8-40); MCH 28.3 pg (25.7-33.7); MCHC 34.1 g/dl (32.0-35.9); MEAN PLT VOLUME 7.4 fl (7.5-11.1); MONO % 7.4 % (3.8-10.2); NEUT % 70.6 % (42.8-82.8); PLATELET COUNT 421 10^3/uL (134-434); RBC 3.79 M/mm3 (4.00-5.60); RDW 15.1 % (11.9-15.9); WHITE BLOOD COUNT 9.9 K/mm3 (4.0-10.0)
[2023-04-04 09:44] LABS: POTASSIUM 4.4 mmol/L (3.5-5.1)
[2023-04-04 09:52] LABS: CALCIUM 9.2 mg/dL (8.5-10.1)
[2023-04-04 09:53] LABS: ALBUMIN 2.7 g/dl (3.4-5.0)
[2023-04-04 09:55] LABS: MAGNESIUM 1.5 mg/dL (1.8-2.4)
[2023-04-04 09:58] LABS: BILIRUBIN,TOTAL 0.6 mg/dL (0.2-1); TOT PROT 7.4 g/dl (6.4-8.2)
[2023-04-04] MEDS: ASPIRIN 81 MG CHEWABLE TABLETS PO SCH (10:21)
[2023-04-04] MEDS: amLODIPine BESYLATE 10 MG TABLET (FP) PO SCH (10:21)
[2023-04-04] MEDS: valACYclovir HCL 500 MG TABLET (FP) PO SCH (10:22)
[2023-04-04] MEDS ORDERED: MAGNESIUM OXIDE 400 MG TABLET (FP) PO ONE (11:28)
[2023-04-04 14:58] VITALS: BP 132/75; PULSE 85; TEMP 98.2
== END 2023-04-04 15:22 | disposition home or self-care (01) | DRG 383 ==
LOC: JER 20:53 → JERFT 20:53 → JERBED 21:48 → J8W 03-28 04:45
PROVIDERS: ADMIT Internal Medicine; ATTEND Nurse Practitioner Family
DX: L03.116 Cellulitis of left lower limb (principal); N17.9 Acute kidney failure, unspecified; I87.2 Venous insufficiency (chronic) (peripheral); E11.9 Type 2 diabetes mellitus without complications; E78.5 Hyperlipidemia, unspecified; I10 Essential (primary) hypertension
CPT/HCPCS: 0241U-QW; 36415; 73610-TC-RT-FY; 73630-TC-RT-FY; 73700-TC-RT; 80053; 81003; 82570; 82962; 83036; 83735; 84300; 84550; 85025; 85027; 85651; 86140; 87040; 87081; 93005; 93010; 93971; 93971-TC; 97116-GP; 97162-GP; 99285-25; J1644

== ENCOUNTER 2024-03-17 09:42 | Emergency (ER) | payer OTHER ==
[2024-03-17 09:47] VITALS: BP 149/80; PULSE 78; RESP 18; TEMP 97.6; BMI 29.3
[2024-03-17] MEDS ORDERED: MECLIZINE HCL 25 MG TABLET (FP) ONE (10:39)
[2024-03-17] MEDS: MECLIZINE HCL 25 MG TABLET (FP) PO ONE (10:41)
== END 2024-03-17 12:45 | disposition home or self-care (01) ==
LOC: JER 09:42
DX: R42 Dizziness and giddiness (principal)
CPT/HCPCS: 99283-25

== ENCOUNTER 2024-05-19 12:25 | Emergency (ER) | payer OTHER ==
[2024-05-19 12:31] VITALS: TEMP 97.8; BMI 29.6
[2024-05-19 13:51] LABS: BASO % 1.2 % (0-2.0); EOS % 5.1 % (0-4.5); HEMOGLOBIN 12.7 GM/dL (11.7-16.9); MCH 28.1 pg (25.7-33.7); MCHC 33.6 g/dl (32.0-35.9); MEAN CELL VOLUME 83.7 fl (80-96); MEAN PLT VOLUME 7.4 fl (7.5-11.1); NEUT % 54.7 % (42.8-82.8); PLATELET COUNT 253 10^3/uL (134-434); RBC 4.54 M/mm3 (4.00-5.60); RDW 14.9 % (11.9-15.9); WHITE BLOOD COUNT 6.3 K/mm3 (4.0-10.0)
[2024-05-19 14:03] LABS: POTASSIUM 4.2 mmol/L (3.5-5.1)
[2024-05-19 14:05] LABS: CALCIUM 9.5 mg/dL (8.5-10.1)
[2024-05-19 14:06] LABS: ALBUMIN 3.8 g/dl (3.4-5.0); BLOOD UREA NITROGEN 23.3 mg/dL (7-18); MAGNESIUM 1.7 mg/dL (1.8-2.4)
[2024-05-19 14:09] LABS: CREATININE 1.1 mg/dL (0.55-1.3)
[2024-05-19 14:11] LABS: BILIRUBIN,TOTAL 1.3 mg/dL (0.2-1); TOT PROT 7.9 g/dl (6.4-8.2)
[2024-05-19 15:29] VITALS: BP 127/71; PULSE 72; RESP 16
== END 2024-05-19 15:36 | disposition home or self-care (01) ==
LOC: JER 12:25
DX: E11.621 Type 2 diabetes mellitus with foot ulcer (principal); L97.529 Non-pressure chronic ulcer of other part of left foot with unspecified severity; Z79.84 Long term (current) use of oral hypoglycemic drugs
CPT/HCPCS: 36415; 73630-TC-LT; 80053; 83036; 83735; 85025; 87070; 87076; 87077; 87186; 87205; 99284-25

== ENCOUNTER 2024-06-02 21:10 | Observation (INO) | payer OTHER ==
[2024-06-02] MEDS ORDERED: ACETAMINOPHEN 500 MG TABLET (FP) ONE (23:35)
[2024-06-02] MEDS ORDERED: KETOROLAC TROMETHAMINE 15 MG/ML VIAL ONE (23:35)
[2024-06-02] MEDS: KETOROLAC TROMETHAMINE 15 MG/ML VIAL IVPUSH ONE (23:42)
[2024-06-02] MEDS: SODIUM CHLORIDE 0.9% 500 ML INFUS.BAG IV ONE (23:42)
[2024-06-02] MEDS: ACETAMINOPHEN 500 MG TABLET (FP) PO ONE (23:42)
[2024-06-03 00:13] LABS: BASO % 0.6 % (0-2.0); EOS % 8.2 % (0-4.5); HEMATOCRIT 39.6 % (35.4-49); HEMOGLOBIN 13.2 GM/dL (11.7-16.9); LYMPH % 36.7 % (8-40); MCH 27.8 pg (25.7-33.7); MCHC 33.4 g/dl (32.0-35.9); MEAN CELL VOLUME 83.2 fl (80-96); MEAN PLT VOLUME 8.4 fl (7.5-11.1); MONO % 11.2 % (3.8-10.2); NEUT % 43.3 % (42.8-82.8); PLATELET COUNT 187 10^3/uL (134-434); RBC 4.77 M/mm3 (4.00-5.60); RDW 14.5 % (11.9-15.9); WHITE BLOOD COUNT 4.2 K/mm3 (4.0-10.0)
[2024-06-03 00:33] LABS: CALCIUM 9.1 mg/dL (8.5-10.1)
[2024-06-03 00:34] LABS: BLOOD UREA NITROGEN 35.3 mg/dL (7-18)
[2024-06-03 00:37] LABS: CREATININE 2.8 mg/dL (0.55-1.3)
[2024-06-03 02:39] LABS: URINE APPEARANCE CLEAR; URINE BILIRUBIN NEGATIVE (NEGATIVE); URINE COLOR ORANGE; URINE GLUCOSE (UA) NEGATIVE (NEGATIVE); URINE KETONE TRACE (NEGATIVE); URINE LEUK ESTERASE NEGATIVE (NEGATIVE); URINE NITRITE NEGATIVE (NEGATIVE); URINE PROTEIN TRACE (NEGATIVE)
[2024-06-03 02:43] LABS: ERYTHROCYTE SEDIMENTATION RATE 20 mm/hr (0-20)
[2024-06-03 03:01] LABS: POTASSIUM 4.2 mmol/L (3.5-5.1)
[2024-06-03 03:02] LABS: CALCIUM 8.8 mg/dL (8.5-10.1)
[2024-06-03 03:03] LABS: BLOOD UREA NITROGEN 38.5 mg/dL (7-18)
[2024-06-03 03:06] LABS: CREATININE 2.6 mg/dL (0.55-1.3)
[2024-06-03] MEDS: LACTATED RINGERS SOLUTION 1000 ML INFUS.BAG IV ONE (04:05)
[2024-06-03] MEDS: LACTATED RINGERS SOLUTION 1,000 ML/1,000 ML INFUS.BAG IV SCH ×2 (04:43→15:45)
[2024-06-03] MEDS ORDERED: SUMAtriptan SUCCINATE 50 MG TABLET ONE (06:12)
[2024-06-03] MEDS ORDERED: HEPARIN NA (PORCINE) 5,000 UNITS/ML 1ML VIAL ONE ×3 (06:12→22:40)
[2024-06-03] MEDS: SUMAtriptan SUCCINATE 25 MG TABLET PO ONE (06:18)
[2024-06-03] MEDS: HEPARIN NA (PORCINE) 5,000 UNITS/ML 1ML VIAL SQ SCH (06:19)
[2024-06-03 06:33] LABS: BASO % 1.3 % (0-2.0); EOS % 8.1 % (0-4.5); HEMATOCRIT 34.3 % (35.4-49); HEMOGLOBIN 11.5 GM/dL (11.7-16.9); LYMPH % 46.5 % (8-40); MCH 27.7 pg (25.7-33.7); MCHC 33.5 g/dl (32.0-35.9); MEAN CELL VOLUME 82.7 fl (80-96); MEAN PLT VOLUME 8.3 fl (7.5-11.1); MONO % 10.2 % (3.8-10.2); NEUT % 33.9 % (42.8-82.8); PLATELET COUNT 137 10^3/uL (134-434); RBC 4.14 M/mm3 (4.00-5.60); RDW 14.2 % (11.9-15.9); WHITE BLOOD COUNT 2.6 K/mm3 (4.0-10.0)
[2024-06-03] MEDS: INSULIN ASPART SLIDING SCALE (NOVOLOG) 1 VIAL SQ SCH (07:26)
[2024-06-03] MEDS ORDERED: INSULIN ASPART SLIDING SCALE (NOVOLOG) 1 VIAL SQ ONE (12:32)
[2024-06-03 17:29] LABS: HIV INTERPRETATION NEGATIVE (NEGATIVE)
[2024-06-03] MEDS ORDERED: ATORVASTATIN CA 20 MG TABLET (FP) ONE (22:39)
[2024-06-03] MEDS: ATORVASTATIN CA 20 MG TABLET (FP) PO SCH (22:47)
[2024-06-04 03:59] VITALS: BMI 29.2
[2024-06-04 09:31] LABS: BASO % 0.8 % (0-2.0); EOS % 7.3 % (0-4.5); HEMATOCRIT 36.8 % (35.4-49); HEMOGLOBIN 12.3 GM/dL (11.7-16.9); LYMPH % 55.9 % (8-40); MCH 27.8 pg (25.7-33.7); MCHC 33.5 g/dl (32.0-35.9); MEAN CELL VOLUME 82.9 fl (80-96); MEAN PLT VOLUME 8.3 fl (7.5-11.1); MONO % 6.9 % (3.8-10.2); NEUT % 29.1 % (42.8-82.8); PLATELET COUNT 160 10^3/uL (134-434); RBC 4.44 M/mm3 (4.00-5.60); RDW 14.6 % (11.9-15.9); WHITE BLOOD COUNT 3.6 K/mm3 (4.0-10.0)
[2024-06-04 09:43] LABS: POTASSIUM 4.6 mmol/L (3.5-5.1)
[2024-06-04 09:46] LABS: CALCIUM 9.3 mg/dL (8.5-10.1)
[2024-06-04 09:47] LABS: ALBUMIN 3.6 g/dl (3.4-5.0); BLOOD UREA NITROGEN 19.3 mg/dL (7-18); MAGNESIUM 1.7 mg/dL (1.8-2.4)
[2024-06-04 09:49] LABS: CREATININE 1.2 mg/dL (0.55-1.3); PHOSPHOROUS 3.3 mg/dL (2.5-4.9)
[2024-06-04 09:51] LABS: BILIRUBIN,TOTAL 0.5 mg/dL (0.2-1); TOT PROT 7.2 g/dl (6.4-8.2)
[2024-06-04] MEDS: FAMOTIDINE 10 MG TABLET PO SCH (10:31)
[2024-06-04] MEDS: ASPIRIN COATED 81 MG TABLET.EC PO SCH (10:31)
[2024-06-04] MEDS: ACETAMINOPHEN 325 MG TABLET (FP) PO PRN (13:58)
[2024-06-04] MEDS: INSULIN (LEVEMIR) 100 UNITS/ML UNITS SQ SCH (23:00)
[2024-06-05 07:33] LABS: BASO % 1.2 % (0-2.0); EOS % 5.5 % (0-4.5); HEMATOCRIT 35.1 % (35.4-49); HEMOGLOBIN 11.8 GM/dL (11.7-16.9); LYMPH % 54.8 % (8-40); MCH 27.9 pg (25.7-33.7); MCHC 33.7 g/dl (32.0-35.9); MEAN CELL VOLUME 82.7 fl (80-96); MEAN PLT VOLUME 7.9 fl (7.5-11.1); MONO % 8.6 % (3.8-10.2); NEUT % 29.9 % (42.8-82.8); PLATELET COUNT 148 10^3/uL (134-434); RBC 4.24 M/mm3 (4.00-5.60); RDW 14.3 % (11.9-15.9)
[2024-06-05 07:45] LABS: POTASSIUM 4.1 mmol/L (3.5-5.1)
[2024-06-05 07:48] LABS: BLOOD UREA NITROGEN 16.5 mg/dL (7-18); CALCIUM 8.8 mg/dL (8.5-10.1)
[2024-06-05 07:51] LABS: CREATININE 1.1 mg/dL (0.55-1.3)
[2024-06-05] MEDS: amLODIPine BESYLATE 5 MG TABLET (FP) PO SCH (10:16)
[2024-06-05] MEDS ORDERED: INSULIN ASPART SLIDING SCALE (NOVOLOG) 1 VIAL SQ ONE (11:57)
[2024-06-05] MEDS ORDERED: LISINOPRIL 5 MG TABLET PO SCH (12:57)
[2024-06-05 14:04] VITALS: BP 133/77; PULSE 73; RESP 20; TEMP 97.5
[2024-06-05] MEDS: LISINOPRIL 10 MG TABLET PO SCH (14:13)
== END 2024-06-05 15:43 | disposition home or self-care (01) ==
LOC: JER 21:10 → JERBED 06-03 02:51 → J7W 06-04 04:03
PROVIDERS: ADMIT Internal Medicine; ATTEND Nurse Practitioner
PROC: 3E023GC Introduction of Other Therapeutic Substance into Muscle, Percutaneous Approach (ICD-10-PCS; principal; 2024-06-03)
PROC: 3E013VG Introduction of Insulin into Subcutaneous Tissue, Percutaneous Approach (ICD-10-PCS; 2024-06-03)
PROC: 3E0333Z Introduction of Anti-inflammatory into Peripheral Vein, Percutaneous Approach (ICD-10-PCS; 2024-06-03)
PROC: 3E0337Z Introduction of Electrolytic and Water Balance Substance into Peripheral Vein, Percutaneous Approach (ICD-10-PCS; 2024-06-03)
DX: N17.9 Acute kidney failure, unspecified (principal); I10 Essential (primary) hypertension; E78.5 Hyperlipidemia, unspecified; E11.621 Type 2 diabetes mellitus with foot ulcer; L03.116 Cellulitis of left lower limb; R51.9 Headache, unspecified
CPT/HCPCS: 0241U-QW; 36415; 70450-TC; 70551-TC; 76775-TC; 80048; 80053; 81003; 82570; 82962; 83735; 83935; 84100; 84300; 84540; 85025; 85651; 86140; 87389; 93005; 93010; 96361; 96372; 96374; 99285-25; G0378; J1644

== ENCOUNTER 2024-07-16 13:38 | Emergency (ER) | payer OTHER ==
[2024-07-16 13:44] VITALS: RESP 18; TEMP 98.3; BMI 29.6
[2024-07-16] MEDS ORDERED: ceFAZolin SODIUM 1 GM VIAL ONE (15:10)
[2024-07-16] MEDS ORDERED: SULFAMETHOXAZOLE/TRIMETHOPRIM 800MG/160MG D.S. TABLET ONE (15:10)
[2024-07-16] MEDS: CEFAZOLIN 1 GM in DEXTROSE 5%-WATER - 50 ML IVPB ONE (15:25)
[2024-07-16] MEDS: SULFAMETHOXAZOLE/TRIMETHOPRIM 800MG/160MG D.S. TABLET PO ONE (15:25)
[2024-07-16 15:34] LABS: BASO % 0.3 % (0-2.0); EOS % 0.6 % (0-4.5); HEMATOCRIT 36.1 % (35.4-49); LYMPH % 10.5 % (8-40); MCH 28.4 pg (25.7-33.7); MCHC 33.1 g/dl (32.0-35.9); MEAN CELL VOLUME 85.8 fl (80-96); MEAN PLT VOLUME 7.4 fl (7.5-11.1); NEUT % 79.6 % (42.8-82.8); PLATELET COUNT 210 10^3/uL (134-434); RBC 4.21 M/mm3 (4.00-5.60); RDW 16.3 % (11.9-15.9); WHITE BLOOD COUNT 9.1 K/mm3 (4.0-10.0)
[2024-07-16 15:50] LABS: POTASSIUM 4.5 mmol/L (3.5-5.1)
[2024-07-16 15:51] LABS: CALCIUM 8.9 mg/dL (8.5-10.1)
[2024-07-16 15:52] LABS: BLOOD UREA NITROGEN 21.4 mg/dL (7-18)
[2024-07-16 15:55] LABS: CREATININE 1.7 mg/dL (0.55-1.3)
[2024-07-16 16:18] LABS: ERYTHROCYTE SEDIMENTATION RATE 77 mm/hr (0-20)
[2024-07-16] MEDS: LACTATED RINGERS SOLUTION 1000 ML INFUS.BAG IV ONE (16:27)
[2024-07-16 17:38] VITALS: BP 129/60; PULSE 87
== END 2024-07-16 17:49 | disposition home or self-care (01) ==
LOC: JER 13:38
DX: L03.116 Cellulitis of left lower limb (principal); M79.662 Pain in left lower leg; R50.9 Fever, unspecified; M79.89 Other specified soft tissue disorders; R21 Rash and other nonspecific skin eruption
CPT/HCPCS: 36415; 80048; 85025; 85651; 86140; 99284-25

== ENCOUNTER 2024-11-12 18:31 | Inpatient (IN) | payer OTHER ==
[2024-11-12 18:59] VITALS: BMI 29.6
[2024-11-12] MEDS ORDERED: KETOROLAC TROMETHAMINE 15 MG/ML VIAL ONE (19:42)
[2024-11-12] MEDS: KETOROLAC TROMETHAMINE 15 MG/ML VIAL IVPUSH ONE (19:54)
[2024-11-12] MEDS ORDERED: PIPERACILLIN/TAZOB 4.5 GM 4.5 GM/100 ML BAG IVPB ONE (20:05)
[2024-11-12] MEDS ORDERED: VANCOMYCIN 1 GM PREMIX (F) 1 GM/200 ML BAG ONE (20:05)
[2024-11-12] MEDS: PIPERACILLIN/TAZOB 4.5 GM 4.5 GM in DEXTROSE 5%-WATER 100 ML IVPB ONE (20:20)
[2024-11-12 20:21] LABS: BASO % 0.4 % (0-2.0); EOS % 1.9 % (0-4.5); HEMATOCRIT 36.7 % (35.4-49); HEMOGLOBIN 11.8 GM/dL (11.7-16.9); LYMPH % 10.8 % (8-40); MCHC 32.2 g/dl (32.0-35.9); MEAN CELL VOLUME 83.7 fl (80-96); MEAN PLT VOLUME 7.5 fl (7.5-11.1); MONO % 6.5 % (3.8-10.2); NEUT % 80.4 % (42.8-82.8); PLATELET COUNT 277 10^3/uL (134-434); RBC 4.39 M/mm3 (4.00-5.60); RDW 14.9 % (11.9-15.9); WHITE BLOOD COUNT 11.2 K/mm3 (4.0-10.0)
[2024-11-12] MEDS: VANCOMYCIN 1,000 MG in DEXTROSE 5%-WATER - 250 ML IVPB ONE (20:25)
[2024-11-12 20:39] LABS: POTASSIUM 4.3 mmol/L (3.5-5.1)
[2024-11-12 20:41] LABS: CALCIUM 9.3 mg/dL (8.5-10.1)
[2024-11-12 20:42] LABS: ALBUMIN 3.7 g/dl (3.4-5.0); BLOOD UREA NITROGEN 25.2 mg/dL (7-18)
[2024-11-12 20:45] LABS: CREATININE 1.6 mg/dL (0.55-1.3)
[2024-11-12 20:46] LABS: BILIRUBIN,TOTAL 1.3 mg/dL (0.2-1)
[2024-11-12 20:51] LABS: PROTHROMBIN TIME (PATIENT) 11.3 SEC (9.7-13.0)
[2024-11-12 20:53] LABS: ACTIVATED PTT 29.7 SECONDS (25.2-36.5)
[2024-11-13] MEDS: PIPERACILLIN/TAZOB 3.375 GM 50 ML IVPB SCH (04:19)
[2024-11-13] MEDS: SODIUM CHLORIDE 1,000 ML IV SCH (04:19)
[2024-11-13] MEDS: HEPARIN NA (PORCINE) 5,000 UNITS/ML 1ML VIAL SQ SCH (06:14)
[2024-11-13] MEDS: INSULIN (LEVEMIR) 100 UNITS/ML UNITS SQ SCH (06:15)
[2024-11-13] MEDS: INSULIN ASPART SLIDING SCALE (NOVOLOG) 1 VIAL SQ SCH (06:23)
[2024-11-13] MEDS: VANCOMYCIN PREMIX 1.5 GM 1,500 MG/300 ML BAG IVPB SCH (08:31)
[2024-11-13] MEDS: ASPIRIN 81 MG CHEWABLE TABLETS PO SCH (09:09)
[2024-11-13] MEDS: amLODIPine BESYLATE 5 MG TABLET (FP) PO SCH (09:09)
[2024-11-13 10:04] LABS: BASO % 0.3 % (0-2.0); EOS % 5.4 % (0-4.5); HEMATOCRIT 33.1 % (35.4-49); HEMOGLOBIN 10.9 GM/dL (11.7-16.9); LYMPH % 12.2 % (8-40); MCH 27.5 pg (25.7-33.7); MCHC 32.8 g/dl (32.0-35.9); MEAN CELL VOLUME 83.8 fl (80-96); MEAN PLT VOLUME 7.5 fl (7.5-11.1); MONO % 7.9 % (3.8-10.2); NEUT % 74.2 % (42.8-82.8); PLATELET COUNT 233 10^3/uL (134-434); RBC 3.95 M/mm3 (4.00-5.60); RDW 14.4 % (11.9-15.9); WHITE BLOOD COUNT 7.1 K/mm3 (4.0-10.0)
[2024-11-13 10:27] LABS: POTASSIUM 4.4 mmol/L (3.5-5.1)
[2024-11-13 10:44] LABS: BLOOD UREA NITROGEN 19.8 mg/dL (7-18)
[2024-11-13 10:45] LABS: CALCIUM 8.9 mg/dL (8.5-10.1)
[2024-11-13 10:46] LABS: MAGNESIUM 1.9 mg/dL (1.8-2.4)
[2024-11-13 10:49] LABS: CREATININE 1.2 mg/dL (0.55-1.3); PHOSPHOROUS 2.6 mg/dL (2.5-4.9)
[2024-11-13 10:51] LABS: BILIRUBIN,TOTAL 1.5 mg/dL (0.2-1); TOT PROT 6.6 g/dl (6.4-8.2)
[2024-11-13] MEDS: PIPERACILLIN/TAZOB 3.375 GM 3.375 GM in DEXTROSE 5%-WATER - 50 ML IVPB SCH (14:51)
[2024-11-13] MEDS: VANCOMYCIN HCL 1,500 MG in DEXTROSE 5%-WATER - 250 ML IVPB SCH (14:52)
[2024-11-13] MEDS: PIPERACILLIN/TAZOB 4.5 GM 4.5 GM in DEXTROSE 5%-WATER 100 ML IVPB SCH (18:32)
[2024-11-13] MEDS: ATORVASTATIN CA 20 MG TABLET (FP) PO SCH (22:36)
[2024-11-14 10:56] LABS: BASO % 0.6 % (0-2.0); EOS % 5.7 % (0-4.5); HEMATOCRIT 33.8 % (35.4-49); HEMOGLOBIN 11.2 GM/dL (11.7-16.9); LYMPH % 23.5 % (8-40); MCH 27.6 pg (25.7-33.7); MCHC 33.1 g/dl (32.0-35.9); MEAN CELL VOLUME 83.3 fl (80-96); MEAN PLT VOLUME 7.4 fl (7.5-11.1); MONO % 9.2 % (3.8-10.2); PLATELET COUNT 257 10^3/uL (134-434); RBC 4.05 M/mm3 (4.00-5.60); RDW 14.5 % (11.9-15.9); WHITE BLOOD COUNT 4.8 K/mm3 (4.0-10.0)
[2024-11-14 11:06] LABS: POTASSIUM 4.2 mmol/L (3.5-5.1)
[2024-11-14 11:13] LABS: CREATININE 1.1 mg/dL (0.55-1.3)
[2024-11-14 11:14] LABS: ALBUMIN 2.8 g/dl (3.4-5.0); BILIRUBIN,TOTAL 0.6 mg/dL (0.2-1); BLOOD UREA NITROGEN 16.9 mg/dL (7-18); CALCIUM 8.9 mg/dL (8.5-10.1); TOT PROT 6.8 g/dl (6.4-8.2)
[2024-11-14 11:16] LABS: MAGNESIUM 1.6 mg/dL (1.8-2.4)
[2024-11-14] MEDS: CEFTRIAXONE 2 GM-D5W BAG 2 GM/50 ML BAG IVPB SCH (18:01)
[2024-11-14] MEDS: VANCOMYCIN PREMIX 1.5 GM 1,500 MG/300 ML BAG IVPB SCH (18:08)
[2024-11-15] MEDS: MAGNESIUM OXIDE 400 MG TABLET (FP) PO SCH (09:45)
[2024-11-15 10:22] LABS: BASO % 0.8 % (0-2.0); EOS % 5.2 % (0-4.5); HEMATOCRIT 38.6 % (35.4-49); LYMPH % 26.1 % (8-40); MCH 28.1 pg (25.7-33.7); MCHC 33.6 g/dl (32.0-35.9); MEAN CELL VOLUME 83.7 fl (80-96); MEAN PLT VOLUME 7.3 fl (7.5-11.1); NEUT % 59.9 % (42.8-82.8); PLATELET COUNT 338 10^3/uL (134-434); RBC 4.61 M/mm3 (4.00-5.60); RDW 14.6 % (11.9-15.9)
[2024-11-15 10:37] LABS: POTASSIUM 4.2 mmol/L (3.5-5.1)
[2024-11-15 10:39] LABS: ALBUMIN 3.3 g/dl (3.4-5.0); BLOOD UREA NITROGEN 19.6 mg/dL (7-18); CALCIUM 9.4 mg/dL (8.5-10.1); MAGNESIUM 1.6 mg/dL (1.8-2.4)
[2024-11-15 10:42] LABS: CREATININE 1.1 mg/dL (0.55-1.3)
[2024-11-15 10:45] LABS: BILIRUBIN,TOTAL 0.6 mg/dL (0.2-1); TOT PROT 8.1 g/dl (6.4-8.2)
[2024-11-16 11:14] LABS: BASO % 0.9 % (0-2.0); EOS % 7.3 % (0-4.5); HEMATOCRIT 36.9 % (35.4-49); HEMOGLOBIN 12.6 GM/dL (11.7-16.9); LYMPH % 32.8 % (8-40); MCH 28.1 pg (25.7-33.7); MCHC 34.1 g/dl (32.0-35.9); MEAN CELL VOLUME 82.6 fl (80-96); MEAN PLT VOLUME 7.2 fl (7.5-11.1); MONO % 9.6 % (3.8-10.2); NEUT % 49.4 % (42.8-82.8); PLATELET COUNT 324 10^3/uL (134-434); RBC 4.46 M/mm3 (4.00-5.60); RDW 14.2 % (11.9-15.9); WHITE BLOOD COUNT 4.6 K/mm3 (4.0-10.0)
[2024-11-16 13:17] LABS: POTASSIUM 4.6 mmol/L (3.5-5.1)
[2024-11-16 13:24] LABS: ALBUMIN 3.2 g/dl (3.4-5.0); CALCIUM 9.5 mg/dL (8.5-10.1)
[2024-11-16 13:25] LABS: BLOOD UREA NITROGEN 18.4 mg/dL (7-18); MAGNESIUM 1.8 mg/dL (1.8-2.4)
[2024-11-16 13:29] LABS: BILIRUBIN,TOTAL 0.5 mg/dL (0.2-1); TOT PROT 7.6 g/dl (6.4-8.2)
[2024-11-16] MEDS: INSULIN ASPART SLIDING SCALE (NOVOLOG) 1 VIAL SQ SCH (16:49)
[2024-11-17 09:57] LABS: BASO % 1.1 % (0-2.0); EOS % 4.8 % (0-4.5); HEMATOCRIT 39.9 % (35.4-49); HEMOGLOBIN 12.8 GM/dL (11.7-16.9); LYMPH % 31.1 % (8-40); MCH 26.8 pg (25.7-33.7); MCHC 32.1 g/dl (32.0-35.9); MEAN CELL VOLUME 83.4 fl (80-96); MEAN PLT VOLUME 6.8 fl (7.5-11.1); MONO % 8.6 % (3.8-10.2); NEUT % 54.4 % (42.8-82.8); PLATELET COUNT 356 10^3/uL (134-434); RBC 4.78 M/mm3 (4.00-5.60); RDW 14.1 % (11.9-15.9); WHITE BLOOD COUNT 6.1 K/mm3 (4.0-10.0)
[2024-11-17 10:12] LABS: POTASSIUM 4.5 mmol/L (3.5-5.1)
[2024-11-17 10:17] LABS: CALCIUM 9.7 mg/dL (8.5-10.1)
[2024-11-17 10:18] LABS: ALBUMIN 3.3 g/dl (3.4-5.0); BLOOD UREA NITROGEN 18.5 mg/dL (7-18); MAGNESIUM 1.9 mg/dL (1.8-2.4)
[2024-11-17 10:21] LABS: CREATININE 1.2 mg/dL (0.55-1.3)
[2024-11-17 10:23] LABS: BILIRUBIN,TOTAL 0.5 mg/dL (0.2-1); TOT PROT 7.7 g/dl (6.4-8.2)
[2024-11-17] MEDS ORDERED: INSULIN ASPART SLIDING SCALE (NOVOLOG) 1 VIAL SQ ONE (10:52)
[2024-11-17] MEDS: VANCOMYCIN PREMIX 1.5 GM 1,500 MG/300 ML BAG IVPB SCH (12:58)
[2024-11-17 15:40] VITALS: PULSE 77
[2024-11-17 16:00] VITALS: BP 130/75; RESP 18; TEMP 98.6
[2024-11-17] MEDS ORDERED: VANCOMYCIN PREMIX 1.5 GM 1,500 MG/300 ML BAG IVPB SCH (18:00)
== END 2024-11-17 20:45 | disposition home or self-care (01) | DRG 344 ==
LOC: JER 18:31 → JERBED 23:59 → J8W 11-13 01:50
PROVIDERS: ADMIT Internal Medicine; ATTEND Nurse Practitioner Acute Care
DX: E11.69 Type 2 diabetes mellitus with other specified complication (principal); M86.9 Osteomyelitis, unspecified; L03.115 Cellulitis of right lower limb; I10 Essential (primary) hypertension; E11.622 Type 2 diabetes mellitus with other skin ulcer; L97.818 Non-pressure chronic ulcer of other part of right lower leg with other specified severity; E78.5 Hyperlipidemia, unspecified; E11.628 Type 2 diabetes mellitus with other skin complications; L08.9 Local infection of the skin and subcutaneous tissue, unspecified; E11.65 Type 2 diabetes mellitus with hyperglycemia
CPT/HCPCS: 36415; 73630-TC-RT-FY; 73718-TC-LT; 73718-TC-RT; 80053; 82962; 83036; 83735; 84100; 85025; 85610; 85651; 85730; 86140; 86850; 86900; 86901; 87070; 87077; 87186; 87205; 93005; 93010; 93922; 93925-TC; 99285-25; G0480; J1644

== ENCOUNTER 2024-11-20 07:52 | Inpatient (IN) | payer OTHER ==
[2024-11-20 09:18] LABS: BASO % 0.9 % (0-2.0); EOS % 2.5 % (0-4.5); HEMATOCRIT 36.1 % (35.4-49); HEMOGLOBIN 12.2 GM/dL (11.7-16.9); LYMPH % 19.7 % (8-40); MCH 27.9 pg (25.7-33.7); MCHC 33.9 g/dl (32.0-35.9); MEAN CELL VOLUME 82.2 fl (80-96); MEAN PLT VOLUME 6.8 fl (7.5-11.1); MONO % 9.5 % (3.8-10.2); NEUT % 67.4 % (42.8-82.8); PLATELET COUNT 310 10^3/uL (134-434); RBC 4.39 M/mm3 (4.00-5.60); RDW 14.4 % (11.9-15.9); WHITE BLOOD COUNT 8.2 K/mm3 (4.0-10.0)
[2024-11-20 09:24] LABS: INR 1.02 (0.83-1.09); PROTHROMBIN TIME (PATIENT) 11.5 SEC (9.7-13.0)
[2024-11-20 09:27] LABS: ACTIVATED PTT 31.8 SECONDS (25.2-36.5)
[2024-11-20 09:48] LABS: POTASSIUM 4.1 mmol/L (3.5-5.1)
[2024-11-20 09:50] LABS: CALCIUM 9.4 mg/dL (8.5-10.1)
[2024-11-20 09:51] LABS: ALBUMIN 3.4 g/dl (3.4-5.0); BLOOD UREA NITROGEN 29.2 mg/dL (7-18)
[2024-11-20 09:54] LABS: CREATININE 1.4 mg/dL (0.55-1.3)
[2024-11-20 09:55] LABS: BILIRUBIN,TOTAL 0.5 mg/dL (0.2-1); TOT PROT 7.4 g/dl (6.4-8.2)
[2024-11-20] MEDS ORDERED: LIDOCAINE HCL/PF 2% SDV 5ML VIAL ONE (10:19)
[2024-11-20] MEDS ORDERED: ONDANSETRON 4 MG/2 ML VIAL ONE (10:22)
[2024-11-20] MEDS ORDERED: ACETAMINOPHEN INJECTION 100 ML ONE (11:05)
[2024-11-20] MEDS ORDERED: MIDAZOLAM HCL 2 MG/2 ML SINGLE DOSE VIAL ONE (11:07)
[2024-11-20] MEDS: LIDOCAINE HCL 1%, 10 MG/ML (20ML VIAL) INF ONE (11:10)
[2024-11-20] MEDS: BUPIVACAINE HCL/PF 0.5% (5MG/ML) 10 ML VIAL IJ ONE (11:10)
[2024-11-20] MEDS: LACTATED RINGERS SOLUTION 1,000 ML IV SCH (11:33)
[2024-11-20] MEDS ORDERED: ONDANSETRON 4 MG/2 ML VIAL IVPUSH PRN (11:35)
[2024-11-20] MEDS: VANCOMYCIN PREMIX 1.5 GM 1,500 MG/300 ML BAG IVPB SCH ×2 (15:08→15:20)
[2024-11-20 15:31] VITALS: BMI 29.7
[2024-11-20] MEDS: INSULIN ASPART SLIDING SCALE (NOVOLOG) 1 VIAL SQ SCH (16:43)
[2024-11-20 17:52] VITALS: RESP 18
[2024-11-20] MEDS: HEPARIN NA (PORCINE) 5,000 UNITS/ML 1ML VIAL SQ SCH (22:24)
[2024-11-20] MEDS: ATORVASTATIN CA 20 MG TABLET (FP) PO SCH (22:25)
[2024-11-21] MEDS: INSULIN (LEVEMIR) 100 UNITS/ML UNITS SQ SCH (07:00)
[2024-11-21 09:25] LABS: BASO % 1.1 % (0-2.0); EOS % 3.7 % (0-4.5); HEMATOCRIT 33.1 % (35.4-49); HEMOGLOBIN 11.1 GM/dL (11.7-16.9); LYMPH % 25.6 % (8-40); MCH 27.8 pg (25.7-33.7); MCHC 33.5 g/dl (32.0-35.9); MEAN PLT VOLUME 6.9 fl (7.5-11.1); MONO % 9.6 % (3.8-10.2); PLATELET COUNT 293 10^3/uL (134-434); RBC 3.98 M/mm3 (4.00-5.60); RDW 14.8 % (11.9-15.9); WHITE BLOOD COUNT 5.9 K/mm3 (4.0-10.0)
[2024-11-21] MEDS: ASPIRIN 81 MG CHEWABLE TABLETS PO SCH (09:55)
[2024-11-21 10:04] LABS: POTASSIUM 3.9 mmol/L (3.5-5.1)
[2024-11-21 10:10] LABS: ALBUMIN 3.1 g/dl (3.4-5.0); BLOOD UREA NITROGEN 17.3 mg/dL (7-18); CALCIUM 8.7 mg/dL (8.5-10.1)
[2024-11-21 10:11] LABS: MAGNESIUM 1.7 mg/dL (1.8-2.4)
[2024-11-21 10:14] LABS: BILIRUBIN,TOTAL 0.8 mg/dL (0.2-1)
[2024-11-21 10:15] LABS: TOT PROT 6.9 g/dl (6.4-8.2)
[2024-11-21] MEDS: MAGNESIUM OXIDE 400 MG TABLET (FP) PO ONE (13:21)
[2024-11-21 16:22] LABS: POTASSIUM 4.5 mmol/L (3.5-5.1)
[2024-11-21 16:24] LABS: CALCIUM 9.3 mg/dL (8.5-10.1)
[2024-11-21 16:25] LABS: ALBUMIN 3.1 g/dl (3.4-5.0); BLOOD UREA NITROGEN 20.4 mg/dL (7-18)
[2024-11-21 16:28] LABS: CREATININE 1.2 mg/dL (0.55-1.3)
[2024-11-21 16:29] LABS: BILIRUBIN,TOTAL 0.5 mg/dL (0.2-1); TOT PROT 7.1 g/dl (6.4-8.2)
[2024-11-22 10:45] LABS: BASO % 1.2 % (0-2.0); EOS % 4.1 % (0-4.5); HEMATOCRIT 35.3 % (35.4-49); HEMOGLOBIN 11.8 GM/dL (11.7-16.9); MCH 27.3 pg (25.7-33.7); MCHC 33.4 g/dl (32.0-35.9); MEAN CELL VOLUME 81.9 fl (80-96); MEAN PLT VOLUME 7.1 fl (7.5-11.1); MONO % 8.6 % (3.8-10.2); NEUT % 59.1 % (42.8-82.8); PLATELET COUNT 303 10^3/uL (134-434); RBC 4.31 M/mm3 (4.00-5.60); RDW 14.3 % (11.9-15.9); WHITE BLOOD COUNT 5.5 K/mm3 (4.0-10.0)
[2024-11-22 11:19] LABS: MAGNESIUM 1.8 mg/dL (1.8-2.4)
[2024-11-22 11:22] LABS: PHOSPHOROUS 3.4 mg/dL (2.5-4.9)
[2024-11-22] MEDS: VANCOMYCIN PREMIX 1.5 GM 1,500 MG/300 ML BAG IVPB SCH (17:43)
[2024-11-23] MEDS: VANCOMYCIN PREMIX 1.5 GM 1,500 MG/300 ML BAG IVPB ONE (00:47)
[2024-11-23 10:36] LABS: HEMATOCRIT 35.9 % (35.4-49); HEMOGLOBIN 12.2 GM/dL (11.7-16.9); MCH 27.7 pg (25.7-33.7); MEAN CELL VOLUME 81.6 fl (80-96); PLATELET COUNT 296 10^3/uL (134-434); RDW 14.6 % (11.9-15.9); WHITE BLOOD COUNT 5.3 K/mm3 (4.0-10.0)
[2024-11-23] MEDS: VANCOMYCIN PREMIX 1.5 GM 1,500 MG/300 ML BAG IVPB SCH (10:42)
[2024-11-23 10:56] LABS: POTASSIUM 4.2 mmol/L (3.5-5.1)
[2024-11-23 10:59] LABS: CALCIUM 9.3 mg/dL (8.5-10.1)
[2024-11-23 11:00] LABS: ALBUMIN 3.2 g/dl (3.4-5.0)
[2024-11-23 11:03] LABS: CREATININE 1.1 mg/dL (0.55-1.3)
[2024-11-23 11:04] LABS: BILIRUBIN,TOTAL 0.5 mg/dL (0.2-1)
[2024-11-23 11:05] LABS: TOT PROT 7.2 g/dl (6.4-8.2)
[2024-11-24 10:05] LABS: HEMATOCRIT 35.9 % (35.4-49); HEMOGLOBIN 12.3 GM/dL (11.7-16.9); MCH 27.8 pg (25.7-33.7); MCHC 34.2 g/dl (32.0-35.9); MEAN CELL VOLUME 81.2 fl (80-96); MEAN PLT VOLUME 6.9 fl (7.5-11.1); PLATELET COUNT 316 10^3/uL (134-434); RBC 4.42 M/mm3 (4.00-5.60); RDW 14.6 % (11.9-15.9); WHITE BLOOD COUNT 5.3 K/mm3 (4.0-10.0)
[2024-11-24 10:25] LABS: POTASSIUM 4.1 mmol/L (3.5-5.1)
[2024-11-24 10:28] LABS: ALBUMIN 3.3 g/dl (3.4-5.0); BLOOD UREA NITROGEN 19.2 mg/dL (7-18); CALCIUM 9.3 mg/dL (8.5-10.1)
[2024-11-24 10:32] LABS: CREATININE 1.1 mg/dL (0.55-1.3)
[2024-11-24 10:33] LABS: BILIRUBIN,TOTAL 0.6 mg/dL (0.2-1); TOT PROT 7.1 g/dl (6.4-8.2)
[2024-11-25] MEDS: metroNIDAZOLE 250 MG TABLET PO SCH (01:17)
[2024-11-25 09:40] LABS: HEMATOCRIT 37.9 % (35.4-49); HEMOGLOBIN 12.3 GM/dL (11.7-16.9); LYMPH % 21.9 % (8-40); MCH 26.9 pg (25.7-33.7); MCHC 32.6 g/dl (32.0-35.9); MEAN CELL VOLUME 82.6 fl (80-96); MEAN PLT VOLUME 7.1 fl (7.5-11.1); MONO % 9.2 % (3.8-10.2); NEUT % 61.9 % (42.8-82.8); PLATELET COUNT 317 10^3/uL (134-434); RBC 4.59 M/mm3 (4.00-5.60); RDW 14.4 % (11.9-15.9); WHITE BLOOD COUNT 6.1 K/mm3 (4.0-10.0)
[2024-11-25 10:03] LABS: POTASSIUM 4.4 mmol/L (3.5-5.1)
[2024-11-25 10:24] LABS: CALCIUM 9.4 mg/dL (8.5-10.1)
[2024-11-25 10:25] LABS: ALBUMIN 3.2 g/dl (3.4-5.0); BLOOD UREA NITROGEN 15.8 mg/dL (7-18); MAGNESIUM 1.7 mg/dL (1.8-2.4)
[2024-11-25 10:27] LABS: CREATININE 1.1 mg/dL (0.55-1.3); PHOSPHOROUS 3.8 mg/dL (2.5-4.9)
[2024-11-25 10:30] LABS: BILIRUBIN,TOTAL 0.6 mg/dL (0.2-1); TOT PROT 7.3 g/dl (6.4-8.2)
[2024-11-25] MEDS: MAGNESIUM OXIDE 400 MG TABLET (FP) PO ONE (19:25)
[2024-11-25 22:25] LABS: POTASSIUM 4.5 mmol/L (3.5-5.1)
[2024-11-25 22:28] LABS: BLOOD UREA NITROGEN 23.4 mg/dL (7-18)
[2024-11-25 22:29] LABS: ALBUMIN 3.3 g/dl (3.4-5.0)
[2024-11-25 22:31] LABS: CREATININE 1.2 mg/dL (0.55-1.3)
[2024-11-25 22:33] LABS: BILIRUBIN,TOTAL 0.5 mg/dL (0.2-1); TOT PROT 7.1 g/dl (6.4-8.2)
[2024-11-26 08:21] LABS: BASO % 2.3 % (0-2.0); EOS % 5.1 % (0-4.5); HEMATOCRIT 36.4 % (35.4-49); HEMOGLOBIN 12.3 GM/dL (11.7-16.9); LYMPH % 25.6 % (8-40); MCH 27.7 pg (25.7-33.7); MCHC 33.9 g/dl (32.0-35.9); MEAN CELL VOLUME 81.7 fl (80-96); MEAN PLT VOLUME 6.9 fl (7.5-11.1); PLATELET COUNT 305 10^3/uL (134-434); RBC 4.46 M/mm3 (4.00-5.60); RDW 14.7 % (11.9-15.9); WHITE BLOOD COUNT 4.5 K/mm3 (4.0-10.0)
[2024-11-26 14:09] VITALS: BP 101/46; PULSE 58; TEMP 97.6
[2024-11-26] MEDS: MAGNESIUM OXIDE 400 MG TABLET (FP) PO ONE (15:50)
== END 2024-11-26 16:35 | disposition home or self-care (01) | DRG 344 ==
LOC: JER 07:52 → INTOOBSV 08:54 → UNDOADMOB 08:54 → JERBED 08:54 → J6S 12:52 → JERBED 12:52 → J6S 13:49 → OBSVTOIN 17:31 → J6S 19:54
PROVIDERS: ADMIT Internal Medicine; ATTEND Internal Medicine
PROC: 0QBQ3ZX Excision of Right Toe Phalanx, Percutaneous Approach, Diagnostic (ICD-10-PCS; principal; 2024-11-20 10:30)
DX: E11.69 Type 2 diabetes mellitus with other specified complication (principal); M86.171 Other acute osteomyelitis, right ankle and foot; E11.65 Type 2 diabetes mellitus with hyperglycemia; L97.529 Non-pressure chronic ulcer of other part of left foot with unspecified severity; E11.621 Type 2 diabetes mellitus with foot ulcer; E83.42 Hypomagnesemia; I10 Essential (primary) hypertension; E78.5 Hyperlipidemia, unspecified
CPT/HCPCS: 0241U-QW; 36415; 73630-TC-RT-FY; 80053; 82550; 82962; 83036; 83735; 84100; 85025; 85027; 85610; 85651; 85730; 86140; 86850; 86900; 86901; 87070; 87075; 87076; 87186; 87205; 93005; 93010; 94760; 99285-25; G0378; G0480; J0131; J1644

== ENCOUNTER 2024-11-27 12:05 | Day surgery (SDC) | payer OTHER ==
[2024-11-27] MEDS: DALBAVANCIN HCL 1,500 MG in DEXTROSE 5%-WATER - 500 ML IVPB ONE (12:45)
[2024-11-27 13:29] VITALS: BP 109/59; PULSE 61; RESP 19; TEMP 98.1
== END 2024-11-27 13:20 | disposition home or self-care (01) ==
LOC: FINFUSION 12:05 → FM/S 12:08 → FINFUSION 13:20
PROVIDERS: ATTEND Internal Medicine Infectious Disease
DX: M86.9 Osteomyelitis, unspecified (principal); L97.529 Non-pressure chronic ulcer of other part of left foot with unspecified severity; E11.9 Type 2 diabetes mellitus without complications; E78.5 Hyperlipidemia, unspecified
CPT/HCPCS: 96365; J0875

== ENCOUNTER 2024-12-04 11:44 | Day surgery (SDC) | payer OTHER ==
[2024-12-04] MEDS: DALBAVANCIN HCL 1,500 MG in DEXTROSE 5%-WATER - 500 ML IVPB ONE (12:24)
[2024-12-04 12:58] VITALS: BP 120/69; PULSE 84; RESP 18; TEMP 98.4
== END 2024-12-04 13:01 | disposition home or self-care (01) ==
LOC: FINFUSION 11:44 → FM/S 11:48 → FINFUSION 13:01
PROVIDERS: ATTEND Internal Medicine Infectious Disease
DX: M86.179 Other acute osteomyelitis, unspecified ankle and foot (principal)
CPT/HCPCS: 96365; J0875